=== PATIENT | male | born 1950 | race Caucasian/White ===

== ENCOUNTER → 2016-08-24 | Outpatient (CLI) | payer MEDICARE ==
[~2016-08-24] MED LIST: AMLO2.5T2 PO; ATOR10TA PO; CARV6.25 PO; CONTRAST GIVEN MC PRN; HYDR12.58 PO; IOPAMIDOL 370 76% 100 ML VIAL. IV ONE; LISI-338 PO; WARF2TAB PO
--- NOTE | 2016-08-24 16:29 | KCIC ---
PQRS Compliance Statement: One or more of the following individualized dose reduction techniques were utilized for this examination: 1. Automated exposure control 2. Adjustment of the mA and/or kV according to patient size 3. Use of iterative reconstruction technique CT ABDOMEN PELVIS WO/W Clinical Indication: Microscopic hematuria times one year. History of aortic dissection. Comparison: None. TECHNIQUE: Helical CT imaging of the abdomen and pelvis is performed precontrast. Helical CT acquisition of the kidneys is required during nephrographic phase after 95 cc Omnipaque 300 IV contrast. A delayed phase acquisition of the abdomen and pelvis isn't performed for urogram protocol. Findings: The bladder is not well distended. There is diffuse wall thickening and increased trabeculations. There is small soft tissue density in the base of the bladder that may be protrusion from the prostate, image 194. No filling defect of the renal pelves is seen. The ureters are normal. No hydronephrosis. Small left renal cysts. There is a 1-2 mm nonobstructing calculus in the upper pole of the right kidney. There is no left renal calculus. No ureteral or bladder calculus. Lung bases clear. Coronary artery disease. Cardiac size normal. There are at least 3 tiny hypodensities in the liver, too small to further characterize. There is a 13 mm cyst in segment 4/8. Gallbladder, spleen, pancreas, and adrenal glands are normal. Atherosclerotic distal abdominal aorta and iliac arteries. There is aortic dissection. Abdominal aorta branches appear to arise from the true lumen. Dissection can only be evaluated on the nephrographic phase images which do not include the majority of the iliac arteries. No obvious abnormality of the stomach. Tiny fat-containing periumbilical hernia. No dilated small bowel. Mild distention of the rectosigmoid colon with stool. Moderate proximal sigmoid and descending colon diverticulosis without evidence of diverticulitis. Scattered stool in the ascending and transverse colon. No colon wall thickening. Appendix not seen, no secondary signs of appendicitis. No abdominal adenopathy or free fluid. No pelvic free fluid. Coarse calcifications in the prostate. Bilateral inguinal lymph nodes may be reactive. No compression fracture in the visualized thoracolumbar spine. IMPRESSION: 1. There is diffuse wall thickening of the bladder and increased trabeculations. Small soft tissue density in the base of the bladder may be protrusion from prostate. Urothelial lesion not excluded. 2. Punctate nonobstructing right renal calculus. 3. Small left renal cysts. 4. Abdominal aortic dissection. 5. Moderate distal colon diverticulosis without evidence of diverticulitis. Electronically signed by: Segundo Salmon MD (08/24/2016 4:26 PM)
== END | disposition home or self-care (01) ==
LOC: KCIC CT 13:47
PROVIDERS: ATTEND Urology
DX: R31.29 Other microscopic hematuria (principal); I25.10 Atherosclerotic heart disease of native coronary artery without angina pectoris; N20.0 Calculus of kidney; N28.1 Cyst of kidney, acquired
CPT/HCPCS: 74178

== ENCOUNTER → 2017-02-15 | Outpatient (CLI) | payer MEDICARE ==
[~2017-02-15] MED LIST changes: -CONTRAST GIVEN MC PRN; -IOPAMIDOL 370 76% 100 ML VIAL. IV ONE
--- NOTE | 2017-02-15 16:27 | CARD ---
APPROVED REPORT EXAM: Two-dimensional and M-mode echocardiogram with Doppler and color Doppler. Other Information Quality : GoodHR: 57bpm INDICATION H/O prosthetic aortic valve replacement Surgery/Intervention Status/Post Aortic Valve Replacement: Mechanical Type: MASTERS VALVED GRAFT 2D DIMENSIONS RVDd3.6 (2.9-3.5cm)Left Atrium(2D)4.2 (1.6-4.0cm) IVSd1.5 (0.7-1.1cm)Aortic Root(2D)2.8 (2.0-3.7cm) LVDd4.4 (3.9-5.9cm)LVOT Diameter2.3 (1.8-2.4cm) PWd1.3 (0.7-1.1cm)IVSs1.7 (0.8-1.2cm) LVDs3.0 (2.5-4.0cm)FS (%) 32.6 % PWs1.6 (0.8-1.2cm)SV54.7 ml LVEF(%)61.2 (>50%) M-Mode DIMENSIONS IVSd1.55 (0.7-1.1cm)LVDd5.44 (4.0-5.6cm) PWd1.36 (0.7-1.1cm)IVSs1.66 cm FS (%) 35 %LVDs3.51 (2.0-3.8cm) PWs1.66 cmLVEF(%)64 (>50%) Aortic Valve AoV Peak Gabriel.210.2cm/sAoV VTI54.6cm AO Peak GR.17.7mmHgLVOT Peak Gabriel.106.4cm/s AO Mean GR.11mmHgAVA (VMAX)1.55cm2 Mitral Valve MV E Gjeerqvs60.6cm/sMV E Peak Gr.96mmHg MV DECEL HFMI383blFF A Gfrzjjrh886.1cm/s MV RWI18xaL/A Ratio0.8 MVA (PHT)3.08cm2 TDI E/Lateral E'7.7E/Medial E'11.8 Pulmonary Valve PV Peak Vhyfqtic189.9cm/sPV Peak Grad.5mmHg Tricuspid Valve TR P. Imhcouco142ja/sRAP MHMEHFFD0omXz TR Peak Gr.7mmHg LEFT VENTRICLE The left ventricle is normal size. There is mild concentric left ventricular hypertrophy. The left ve ntricular systolic function is low normal. EF 50-55% There is normal LV segmental wall motion. Transm itral Doppler flow pattern is Grade I-abnormal relaxation pattern. RIGHT VENTRICLE The right ventricle is mildly to moderately dilated. The right ventricle is mildly hypertrophied. The right ventricular systolic function is normal. ATRIA The left atrium size is normal. The right atrium size is normal. The interatrial septum is intact wit h no evidence for an atrial septal defect or patent foramen ovale as noted on 2-D or Doppler imaging. AORTIC VALVE Doppler and Color Flow revealed trace to mild aortic regurgitation. There is no significant aortic va lvular stenosis. There is no aortic valvular vegetation. Aortic Valce Replacement- Model #-[id number] 00, Tissue Annulus Diameter - 25mm, Graft Inner Diameter- 28mm, Valve Orifice Inner Diameter - 20.4 mm, Geometric Orifice Area - 3.09(cm2) MITRAL VALVE The mitral valve is thickened but opens well. There is no evidence of mitral valve prolapse. There is no mitral valve stenosis. Doppler and Color-flow revealed mild mitral regurgitation. TRICUSPID VALVE The tricuspid valve leaflets are thickened , but open well. Doppler and Color Flow revealed trace to mild tricuspid regurgitation. There is no tricuspid valve stenosis. PULMONIC VALVE Doppler and Color Flow revealed moderate pulmonic valvular regurgitation. There is no pulmonic valvul ar stenosis. GREAT VESSELS The aortic root is normal in size. The ascending aorta is normal in size. The IVC is normal in size a nd collapses >50% with inspiration. PERICARDIAL EFFUSION There is no pleural effusion. There is no evidence of significant pericardial effusion. Critical Notification Critical Value: No <Conclusion> The left ventricular systolic function is low normal. EF 50-55% There is normal LV segmental wall motion. The right ventricle is mildly to moderately dilated. Aortic Valce Replacement- Model #-[id number] 00, Doppler and Color Flow revealed trace to mild aorti c regurgitation.
== END | disposition home or self-care (01) ==
LOC: ECHO 12:41
PROVIDERS: ATTEND Internal Medicine Cardiovascular Disease
DX: I34.0 Nonrheumatic mitral (valve) insufficiency (principal); I35.1 Nonrheumatic aortic (valve) insufficiency; I51.7 Cardiomegaly; Z95.2 Presence of prosthetic heart valve
CPT/HCPCS: 93306

== ENCOUNTER 2017-04-22 13:07 | Inpatient (IN) | payer MEDICARE ==
[2017-04-22 13:45] LABS: ADD MAN DIFF? NO
[2017-04-22 13:51] LABS: BASO % 0 % (0-3); EOS # 0.3 x10^3/uL (0.0-0.7); EOS % 2 % (0-3); HEMATOCRIT 38.8 % (39.0-53.0); HEMOGLOBIN 13.2 g/dL (13.0-17.5); LYMPH # 1.6 x10^3/uL (1.0-4.8); LYMPH % 14 % (24-48); MEAN CORPUSCULAR HEMOGLOBIN 30 pg (25-35); MEAN CORPUSCULAR HGB CONC 34 g/dL (31-37); MEAN CORPUSCULAR VOLUME 87 fL (79-100); MONO # 0.8 x10^3/uL (0.0-1.1); MONO % 7 % (0-9); NEUT # 8.5 x10^3uL (1.8-7.7); NEUT % 76 % (31-73); PLATELET COUNT 338 x10^3/uL (140-400); RED BLOOD COUNT 4.44 x10^6/uL (4.30-5.70); RED CELL DISTRIBUTION WIDTH 13.9 % (11.5-14.5); WHITE BLOOD COUNT 11.2 x10^3/uL (4.0-11.0)
[2017-04-22 14:04] LABS: ANION GAP 9 (6-14); BLOOD UREA NITROGEN 27 mg/dL (8-26); CALCIUM 9.5 mg/dL (8.5-10.1); CARBON DIOXIDE 33 mmol/L (21-32); CHLORIDE 98 mmol/L (98-107); CREATININE 1.3 mg/dL (0.7-1.3); GFR 55.6; GLUCOSE 123 mg/dL (70-99); POTASSIUM 3.1 mmol/L (3.5-5.1); SODIUM 140 mmol/L (136-145)
[2017-04-22 14:07] LABS: ALBUMIN 3.8 g/dL (3.4-5.0); ALK PHOS 74 U/L (46-116); ALT (SGPT) 17 U/L (16-63); AST (SGOT) 28 U/L (15-37); DIRECT BILIRUBIN 0.2 mg/dL (0.0-0.2); LIPASE 122 U/L (73-393); TOTAL BILIRUBIN 1.2 mg/dL (0.2-1.0)
[2017-04-22 14:15] LABS: TROPONINI < 0.017 ng/mL (0.000-0.055)
[2017-04-22] MEDS: IV NORMAL SALINE 500ML BAG 500 ML IV ×2 (14:29→14:52)
[2017-04-22] MEDS: hydrALAZINE 20 MG/ML VIAL. IVP (14:30)
[2017-04-22 14:42] LABS: BILIRUBIN,URINE NEGATIVE (NEG); CLARITY,URINE CLOUDY; COLOR,URINE YELLOW; GLUCOSE,URINE NEGATIVE (NEG); NITRITE,URINE NEGATIVE (NEG); PH,URINE 6.5; PROTEIN,URINE NEGATIVE (NEG-TRACE); UROBILINOGEN,URINE 0.2 mg/dL (0.2 mg/dL)
[2017-04-22] MEDS ORDERED: MORPHINE SULFATE 2 MG/ML DISP.SYRIN. IV ×2 (14:45→20:00)
[2017-04-22] MEDS ORDERED: ONDANSETRON PF 4 MG/2 ML VIAL. IV ×2 (14:45→20:00)
[2017-04-22 14:49] LABS: BACTERIA,URINE 0 /HPF (0-FEW); RBC,URINE 0 /HPF (0-2); WBC,URINE >40 /HPF (0-4)
[2017-04-22] MEDS ORDERED: ESMOLOL 2500MG/250ML PREMIX 250 ML IV (15:00)
[2017-04-22] MEDS ORDERED: CCPD PATIENT. MC (15:15)
[2017-04-22] MEDS: IOHEXOL 300 MG/ML 100ML VIAL. IV (15:19)
[2017-04-22] MEDS: IV NORMAL SALINE 1000ML BAG 1,000 ML IV ×2 (15:42→21:53)
[2017-04-22] MEDS: METOPROLOL TART IMMED RELEASE 25 MG TABLET. PO (15:43)
[2017-04-22 17:04] LABS: INR 2.3 (0.8-1.1); PROTHROMBIN TIME PATIENT 23.5 SEC (11.7-14.0)
[2017-04-22 17:05] LABS: PARTIAL THROMBOPLASTIN TIME 42 SEC (24-38)
[2017-04-22] MEDS ORDERED: DOCUSATE SODIUM 100 MG CAPSULE. PO (20:00)
[2017-04-22] MEDS ORDERED: traMADol 50 MG TABLET PO (20:00)
[2017-04-22] MEDS ORDERED: hydrALAZINE 20 MG/ML VIAL. IVP (20:00)
[2017-04-22] MEDS ORDERED: ACETAMINOPHEN 325 MG TABLET. PO (20:00)
[2017-04-22] MEDS: SIMVASTATIN 10 MG TABLET PO ×2 (21:44→21:52)
[2017-04-22] MEDS: WARFARIN 5 MG TABLET. PO (21:45)
[2017-04-22] MEDS: OMEGA-3 FATTY ACIDS/FISH OIL 1,000 MG CAPSULE. PO (22:06)
[2017-04-22] MEDS: FAMOTIDINE 20 MG TABLET. PO (22:06)
[2017-04-22] MEDS: PSYLLIUM HUSK (SUGAR FREE) 1 PKT PACKET PO (22:06)
[2017-04-22] MEDS ORDERED: PSYLLIUM HUSK (SUGAR FREE) 1 PKT PACKET PO (22:30)
[2017-04-23 04:43] LABS: ADD MAN DIFF? NO
[2017-04-23 04:59] LABS: BASO # 0.1 x10^3/uL (0.0-0.2); BASO % 1 % (0-3); EOS # 0.2 x10^3/uL (0.0-0.7); EOS % 2 % (0-3); HEMATOCRIT 35.9 % (39.0-53.0); HEMOGLOBIN 12.3 g/dL (13.0-17.5); LYMPH # 1.6 x10^3/uL (1.0-4.8); LYMPH % 14 % (24-48); MEAN CORPUSCULAR HEMOGLOBIN 30 pg (25-35); MEAN CORPUSCULAR HGB CONC 34 g/dL (31-37); MEAN CORPUSCULAR VOLUME 87 fL (79-100); MONO # 0.9 x10^3/uL (0.0-1.1); MONO % 8 % (0-9); NEUT # 8.7 x10^3uL (1.8-7.7); NEUT % 76 % (31-73); PLATELET COUNT 330 x10^3/uL (140-400); RED BLOOD COUNT 4.12 x10^6/uL (4.30-5.70); WHITE BLOOD COUNT 11.5 x10^3/uL (4.0-11.0)
[2017-04-23 05:10] LABS: INR 2.3 (0.8-1.1); PROTHROMBIN TIME PATIENT 23.8 SEC (11.7-14.0)
[2017-04-23 05:49] LABS: ANION GAP 9 (6-14); BLOOD UREA NITROGEN 20 mg/dL (8-26); CALCIUM 8.9 mg/dL (8.5-10.1); CARBON DIOXIDE 30 mmol/L (21-32); CHLORIDE 105 mmol/L (98-107); CREATININE 1.1 mg/dL (0.7-1.3); GFR 67.4; GLUCOSE 94 mg/dL (70-99); POTASSIUM 3.1 mmol/L (3.5-5.1); SODIUM 144 mmol/L (136-145)
[2017-04-23] MEDS: FAMOTIDINE 20 MG TABLET. PO (08:36)
[2017-04-23] MEDS: CHOLECALCIFEROL (VITAMIN D3) 1,000 UNIT TABLET PO (08:36)
[2017-04-23] MEDS: OMEGA-3 FATTY ACIDS/FISH OIL 1,000 MG CAPSULE. PO (08:36)
[2017-04-23] MEDS ORDERED: WARFARIN 5 MG TABLET. PO (09:00)
[2017-04-23] MEDS: POTASSIUM CHLORIDE 20 MEQ TABLET.ER. PO (11:20)
[2017-04-23] MEDS ORDERED: WARFARIN 7.5 MG TABLET. PO (16:00)
== END 2017-04-23 11:30 | disposition home or self-care (01) | DRG 69 ==
LOC: ER 13:07 → 2 NORTH 16:53
DX: G45.9 Transient cerebral ischemic attack, unspecified (principal); E78.5 Hyperlipidemia, unspecified; N39.0 Urinary tract infection, site not specified; I16.0 Hypertensive urgency; H81.399 Other peripheral vertigo, unspecified ear; H91.90 Unspecified hearing loss, unspecified ear; E87.6 Hypokalemia; H93.19 Tinnitus, unspecified ear; I10 Essential (primary) hypertension; J44.9 Chronic obstructive pulmonary disease, unspecified; R27.0 Ataxia, unspecified; Z82.49 Family history of ischemic heart disease and other diseases of the circulatory system; Z85.51 Personal history of malignant neoplasm of bladder; Z87.891 Personal history of nicotine dependence; Z95.2 Presence of prosthetic heart valve; Z88.0 Allergy status to penicillin; Z88.8 Allergy status to other drugs, medicaments and biological substances
CPT/HCPCS: 36415; 70450; 70496; 70498; 80048; 80076; 81001; 83690; 84484; 85025; 85610; 85730; 87086; 93005; 96361; 96374; 99285; 99285-25; J0360; J7030; J7040; Q9967

== ENCOUNTER → 2017-07-19 | Outpatient (CLI) | payer MEDICARE ==
[~2017-07-19] MED LIST changes: -AMLO2.5T2 PO; -ATOR10TA PO; -CARV6.25 PO; +CONTRAST GIVEN MC; -HYDR12.58 PO; -LISI-338 PO; -WARF2TAB PO
[2017-07-19] MEDS: IOHEXOL 300 MG/ML 100ML VIAL. IV (08:55)
== END | disposition home or self-care (01) ==
LOC: CT 14:59
DX: I71.01 Dissection of thoracic aorta (principal); J43.2 Centrilobular emphysema; Z86.79 Personal history of other diseases of the circulatory system
CPT/HCPCS: 71260; 74160; Q9967

== ENCOUNTER → 2018-02-28 | Outpatient (CLI) | payer MEDICARE ==
[2017-04-23 11:17] VITALS: BP 157/73
[~2018-02-28] MED LIST changes: +AMLO10TA4 PO; +AMLO2.5T2 PO; +ATOR10TA PO; +CARV6.25 PO; +CHOL10003 PO; -CONTRAST GIVEN MC; +FAMO20TA5 PO; +FISH1CAP PO; +HYDR-2145 PO; +HYDR12.58 PO; +LISI-334 PO; +LISI-338 PO; +PSYL822P6 PO; +SIMV10TA3 PO; +WARF-78 PO; +WARF2TAB PO; +WARF7.5T48 PO
--- NOTE | 2018-02-28 11:28 | CARD ---
MR#: [id number] Date of Study: 02/28/2018 Ordering Physician: KOBE LOPEZ, Referring Physician: KOBE LOPEZ Tech: Jess Martin RDCS APPROVED REPORT EXAM: Two-dimensional and M-mode echocardiogram with Doppler and color Doppler. Other Information Quality : Good INDICATION Surgery/Intervention Status/Post Aortic Valve Replacement: Mechanical Type: St. Brandt #25mm Date: 11/27/2008 2D DIMENSIONS RVDd3.6 (2.9-3.5cm)Left Atrium(2D)4.0 (1.6-4.0cm) IVSd1.1 (0.7-1.1cm)Aortic Root(2D)2.5 (2.0-3.7cm) LVDd5.5 (3.9-5.9cm)LVOT Diameter2.2 (1.8-2.4cm) PWd1.0 (0.7-1.1cm)LVDs3.3 (2.5-4.0cm) FS (%) 30.0 %SV99.1 ml LVEF(%)60.0 (>50%) Aortic Valve AoV Peak Gabriel.226.5cm/sAoV VTI53.5cm AO Peak GR.20.5mmHgLVOT Peak Gabriel.123.7cm/s LVOT VTI 29.44cmAO Mean GR.12mmHg TAQUERIA (VMAX)2.69da4XBB (VTI)2.07cm2 Mitral Valve MV E Qzwjfpxk30.2cm/sMV DECEL IMOR428yc MV A Tlevdefa21.4cm/sMV LDZ78ny E/A Ratio0.9MVA (PHT)4.69cm2 TDI E/Lateral E'9.8E/Medial E'12.3 Tricuspid Valve TR P. Qzfdhljt311ww/sRAP ZOKXJBCY9wrBn TR Peak Gr.41faJwSSJL90bnUy Pulmonary Vein S1 Reyyrocb36.6cm/sD2 Fzwgnmlx22.5cm/s LEFT VENTRICLE The left ventricle is normal size. There is normal left ventricular wall thickness. The left ventricu lar systolic function is normal and the ejection fraction is within normal range. Left ventricular ej ection fraction of 50-55%. There is normal LV segmental wall motion. Transmitral Doppler flow pattern is Grade I-abnormal relaxation pattern. RIGHT VENTRICLE The right ventricle is normal size. The right ventricular systolic function is normal. ATRIA The left atrium is mildly dilated. The right atrium size is normal. The interatrial septum is intact with no evidence for an atrial septal defect or patent foramen ovale as noted on 2-D or Doppler imagi ng. AORTIC VALVE The aortic valve is not well visualized. Doppler and Color Flow revealed trace to mild aortic regurgi tation. Calculated aortic valve area is 2.0 cm2 with maximum pressure gradient of 21 mmHg and mean pr essure gradient of 12 mmHg. There is no significant aortic valvular stenosis. MITRAL VALVE The mitral valve is calcified but opens well. The anterior mitral valve leaflet is redundant. There i s no mitral valve stenosis. Doppler and Color-flow revealed mild eccentric mitral regurgitation. TRICUSPID VALVE The tricuspid valve is normal in structure and function. Doppler and Color Flow revealed trace tricus pid regurgitation. The PA pressure was estimated at 16 mmHg. There is no tricuspid valve stenosis. PULMONIC VALVE The pulmonic valve is not well visualized. Doppler and Color Flow revealed trace to mild pulmonic carroll vular regurgitation. There is no pulmonic valvular stenosis. GREAT VESSELS The aortic root is normal in size. The ascending aorta is normal in size. The IVC is normal in size a nd collapses >50% with inspiration. PERICARDIAL EFFUSION There is no evidence of significant pericardial effusion. Critical Notification Critical Value: No <Conclusion> The left ventricle is normal size. The left ventricular systolic function is normal and the ejection fraction is within normal range. Left ventricular ejection fraction of 50-55%. Calculated aortic valve area is 2.0 cm2 with maximum pressure gradient of 21 mmHg and mean pressure g radient of 12 mmHg. There is no significant aortic valvular stenosis. Doppler and Color Flow revealed trace to mild aortic regurgitation. Doppler and Color-flow revealed mild eccentric mitral regurgitation. Doppler and Color Flow revealed trace tricuspid regurgitation. The PA pressure was estimated at 16 mmHg. Signed by : Selvin Aranda MD Electronically Approved : 02/28/2018 11:27:22
== END | disposition home or self-care (01) ==
LOC: ECHO 08:41
PROVIDERS: ATTEND Internal Medicine Cardiovascular Disease
DX: Z48.812 Encounter for surgical aftercare following surgery on the circulatory system (principal); I08.0 Rheumatic disorders of both mitral and aortic valves; Z95.2 Presence of prosthetic heart valve; Z87.891 Personal history of nicotine dependence
CPT/HCPCS: 93306

== ENCOUNTER → 2018-07-19 | Day surgery (SDC) | payer MEDICARE ==
[~2018-07-19] MED LIST changes: +HYDROmorphone 2 MG/ML VIAL IV PRN; +IV RINGERS,LACTATED 1000ML 1,000 ML IV SCH; +LIDOCAINE 1% PF 2 ML VIAL. ID PRN; +LIDOCAINE 2% PF 5 ML VIAL. ONE; +MORPHINE SULFATE 2 MG/ML VIAL. IV PRN; +ONDANSETRON PF 4 MG/2 ML VIAL. IV PRN; +PROCHLORPERAZINE 10 MG/2 ML VIAL. IV PRN; +PROPOFOL 40 ML IV ONE; +fentaNYL PF VIAL 100 MCG/2 ML VIAL IV PRN
[2018-07-19 10:05] VITALS: BP 111/66
--- NOTE | 2018-07-20 00:58 | CONS ---
DATE OF CONSULTATION: REFERRING PHYSICIAN: Dr. Jesse Vo. REASON FOR CONSULTATION: Rectal bleeding. HISTORY OF PRESENT ILLNESS: This is a 67-year-old male with past medical history significant for hypertension, hyperlipidemia, status post aortic valve replacement and aortic dissection, on anticoagulation ____ with an episode of bleeding associated with constipation. There is a family history of colon polyp with the sister with recent events. He does request a colonoscopy. PAST MEDICAL HISTORY: Hyperlipidemia, hypertension, status post aortic valve replacement, diverticulosis, COPD. ALLERGIES: PENICILLIN AND CIPRO. MEDICATIONS: Include amlodipine, carvedilol, vitamin D, famotidine, fish oil, hydrochlorothiazide, lisinopril, simvastatin, and warfarin. FAMILY HISTORY: Significant for colon polyps in a sister. Hypertension with both parents, MIs with both parents. SOCIAL HISTORY: Former smoker, social drinker. PAST SURGICAL HISTORY: AAA repair, appendectomy, tonsillectomy, aortic valve replacement, craniotomy due to subdural hematoma. REVIEW OF SYSTEMS: Per records. PHYSICAL EXAMINATION: GENERAL: Reveals a well-nourished, well-developed male, who is alert, cooperative, in no acute distress. VITAL SIGNS: Temperature 97.5, pulse 60, respirations 18. HEENT: Normocephalic and atraumatic head. Pupils and extraocular muscles are not tested. Sclerae anicteric. NECK: Supple. LUNGS: Clear. CARDIOVASCULAR: Reveals an S1, S2 without S3, S4 or appreciable murmur. ABDOMEN: Soft abdomen, normal bowel sounds, without appreciable hepatosplenomegaly. EXTREMITIES: Reveals no cyanosis, clubbing, edema. IMPRESSION: Rectal bleeding and requiring anticoagulation with aortic valve replacement. We will recommend colonoscopy and endoscopic polypectomies will be ____ by endoclipping to reduce the risk of bleeding as the Coumadin has only been held for the previous night and this will be resumed later today to reduce the risk of thromboembolism. I would like to thank Dr. Vo for allowing us to consult and participate in this patient's care. LIZZY PASTOR MD DR: [facility] JOB#: [id number] / [id number]
--- NOTE | 2018-07-22 16:06 | PATHOLOGY ---
[facility] Accession Number: [id number] . 01 Material submitted: . colon - SIMGOID POLYP. Modifiers: sigmoid . 01 Clinical history: . Abdominal pain . 02 Diagnosis: Colon biopsy, sigmoid polyp: - Hyperplastic polyp. ([facility] 07/22/2018) P/07/22/2018 . 02 Comment: There are no adenomatous changes or evidence of malignancy. ([facility] 07/22/2018) . 02 Electronically signed: . Steven Mcdermott MD, Pathologist NPI- [id number] . 01 Gross description: . Received in formalin labeled "Gordon, Dez, sigmoid polyp," is a single segment of mejia soft tissue measuring 0.4 cm in maximum dimension. The specimen is entirely submitted in cassette A1. ([facility]; 07/19/2018) TOB/TOB . 02 Pathologist provided ICD-10: K63.5 . 02 CPT . 139704 Specimen Comment: A courtesy copy of this report has been sent to Specimen Comment: [phone], . Specimen Comment: Report sent to / DR HOOPER Performed at: 01 [facility] [address] [facility] [address] [facility] [address], [place] [id number] MD Noah Cintron MD Phone: [phone] Performed at: 02 [facility] [address] [place], [place] [id number] MD Steven Mcdermott MD Phone: [phone]
== END | disposition home or self-care (01) ==
LOC: ENDOS 08:05
PROVIDERS: ATTEND Internal Medicine Gastroenterology
DX: K63.5 Polyp of colon (principal); K57.30 Diverticulosis of large intestine without perforation or abscess without bleeding; K64.0 First degree hemorrhoids; I10 Essential (primary) hypertension; E78.5 Hyperlipidemia, unspecified; Z88.1 Allergy status to other antibiotic agents; Z88.0 Allergy status to penicillin; Z79.01 Long term (current) use of anticoagulants; J44.9 Chronic obstructive pulmonary disease, unspecified; Z87.19 Personal history of other diseases of the digestive system; Z79.899 Other long term (current) drug therapy; Z82.49 Family history of ischemic heart disease and other diseases of the circulatory system; Z87.891 Personal history of nicotine dependence; Z72.89 Other problems related to lifestyle; Z90.49 Acquired absence of other specified parts of digestive tract; Z98.890 Other specified postprocedural states; Z95.4 Presence of other heart-valve replacement
CPT/HCPCS: 45385; 88305; J2001; J2704; 45380

== ENCOUNTER → 2018-09-24 | Outpatient (CLI) | payer MEDICARE ==
[2018-07-19 10:05] VITALS: BP 111/66
[~2018-09-24] MED LIST changes: -HYDROmorphone 2 MG/ML VIAL IV PRN; -IV RINGERS,LACTATED 1000ML 1,000 ML IV SCH; -LIDOCAINE 1% PF 2 ML VIAL. ID PRN; -LIDOCAINE 2% PF 5 ML VIAL. ONE; -MORPHINE SULFATE 2 MG/ML VIAL. IV PRN; -ONDANSETRON PF 4 MG/2 ML VIAL. IV PRN; -PROCHLORPERAZINE 10 MG/2 ML VIAL. IV PRN; -PROPOFOL 40 ML IV ONE; -fentaNYL PF VIAL 100 MCG/2 ML VIAL IV PRN
--- NOTE | 2018-09-24 12:06 | RAD ---
MR#: [id number] Date of Study: 09/24/2018 Ordering Physician: KOBE LOPEZ Referring Physician: EMORY CAMARGO Tech: GLORIA Smith APPROVED REPORT Test Type: Exercise Stress Nurse/Tech: Janie Zafar R.N. Test Indications: aortic discection Cardiac History: mechanical valve, htn, copc Medications: See Electronic Medical Record Medical History: See Electronic Medical Record Resting ECG: SB w/ pacs Resting Heart Rate: 52 bpm Resting Blood Pressure: 120/47mmHg Pretest Chest Pain: No chest pain Nurse/Tech Notes S1S2, click from mechanical valve, lungs CTA Consent: The procedure was explained to the patient in lay terms. Informed consent was witnessed. Shailesh eout was entered into [employer]. History and Stress Test performed by GLORIA Smith Stress Symptoms severe SOB POST EXERCISE Reason for Termination: Reached target heart rate Target HR: Yes Max HR: 138 bpm 106% of Maximum Predicted HR: 130 bpm Exercise duration: 5:49 min:sec, 2 Stage Exercise capacity: 7METs Max Blood Pressure: 190/66mmHg Blood Pressure response to exercise: Normal blood pressure response during stress. Heart Rate response to exercise: wnl Chest Pain: No. Arrhythmia: Yes. started having multiple pvcs and pacs- became very irregular ST Change: No. INTERPRETATION Stress EKG Conclusion: Abnormal EKG response with frequent PVC's in recovery. Imaging Protocol IMAGE PROTOCOL: Rest Tc-99m/stress Tc-99m 1 day Rest: Stress: Viability: Radiopharm.Tc99m TdfhdxnwxYh26y Sestamibi Qrhy69mOq 33mCi Duration 13.5min. 13.5min. Img Date 09/24/2018 09/24/2018 Inj-Img Fiwk51vun. 60min. Post-Injection Exercise: 1 minute Rest Admin Site:IV - Right AntecubitalAdministrator:GLORIA Smith Stress Admin Site: IV - Right AntecubitalAdministrator: GLORIA Smith STRESS DATA End Diast. Vol.106.0mlLVEDV index BSA51.0ml End Syst. Vol.37.0mlLVESV index BSA18.0ml Myocardial Lsan137.0gEject. Duscohkf67.0% Stress Scores Regional WT0.00Summed WT1.00 Regional WM0.00Summed WM8.00 LV Perfusion Normal perfusion at stress. Diaphragmatic attenuation at rest precludes accurate assessment. Wall Motion Normal LV function. LV Perf. Quant 17 Seg. SSS2.00 17 Seg. SRS12.00 17 Seg. SDS0.00 Stress Defect Extent (% LAD)0.00Rest Defect Extent (% LAD)1.30Rev. Defect Extent (% LAD)0.00 Stress Defect Extent (% LCX) 0.00Rest Defect Extent (% LCX)42.50Rev. Defect Extent (% LCX)0.00 Stress Defect Extent (% RCA)0.00Rest Defect Extent (% RCA)12.20Rev. Defect Extent (% RCA)0.00 Stress Defect Extent (% ERNESTO)0.00Rest Defect Extent (% ERNESTO)18.50Rev. Defect Extent (% ERNESTO)0.00 Other Information Quality:Good Risk Assessment: Low Risk Conclusion 1. Mildly abnormal EKG with frequent PVC's in recovery. Patient had severe shortness of breath with e xertion. 2. Normal perfusion at stress. Rest images have significant artifact. 3. Normal EF at > 65% 4. Moderate risk study due to abnormal EKG and symptoms Signed by : Gallo Templeton, Electronically Approved : 09/24/2018 12:06:09
== END | disposition home or self-care (01) ==
LOC: NM 08:16
PROVIDERS: ATTEND Internal Medicine Cardiovascular Disease
DX: I49.3 Ventricular premature depolarization (principal); R94.31 Abnormal electrocardiogram [ECG] [EKG]; R06.02 Shortness of breath; I10 Essential (primary) hypertension; J44.9 Chronic obstructive pulmonary disease, unspecified; Z79.01 Long term (current) use of anticoagulants; Z87.891 Personal history of nicotine dependence
CPT/HCPCS: 78452; 93017; A9500; 96376

== ENCOUNTER → 2018-11-28 | Outpatient (CLI) | payer MEDICARE, BC ==
[2018-07-19 10:05] VITALS: BP 111/66
--- NOTE | 2018-11-28 17:21 | CARD ---
MR#: [id number] Date of Study: 11/28/2018 Ordering Physician: KOBE LOPEZ, Referring Physician: KOBE LOPEZ, Tech: Hailee Dumontkerry APPROVED REPORT EXAM: Two-dimensional and M-mode echocardiogram with Doppler and color Doppler. Other Information Quality : AverageHR: 45bpm INDICATION COPD Aortic Valve Disease Surgery/Intervention Status/Post Aortic Valve Replacement: Mechanical Type: St. Brandt #25 Date: 11/27/2008 RISK FACTORS Hypertension Hyperlipidemia Previous smoker 2D DIMENSIONS RVDd3.9 (2.9-3.5cm)Left Atrium(2D)3.5 (1.6-4.0cm) IVSd1.2 (0.7-1.1cm)Aortic Root(2D)2.7 (2.0-3.7cm) LVDd5.2 (3.9-5.9cm)LVOT Diameter2.0 (1.8-2.4cm) PWd1.0 (0.7-1.1cm)LVDs3.2 (2.5-4.0cm) FS (%) 39.0 %SV90.1 ml LVEF(%)69.0 (>50%) Aortic Valve AoV Peak Gabriel.243.2cm/sAoV VTI56.1cm AO Peak GR.23.7mmHgLVOT Peak Gabriel.70.7cm/s LVOT VTI 17.54cmAO Mean GR.13mmHg TAQUERIA (VMAX)0.52po9EPB (VTI)1.03cm2 AI P 1/2 Pafk850vr Mitral Valve MV E Uzicmism37.4cm/sMV DECEL GUCW071gb MV A Gsgblybb47.8cm/sMV JWV50mi E/A Ratio1.3MVA (PHT)4.18cm2 TDI E/Lateral E'9.7E/Medial E'13.3 Pulmonary Valve PV Peak Wokdyorb987.4cm/sPV Peak Grad.5mmHg Tricuspid Valve TR P. Tpbobbkm592tm/sRAP ZEIXSEBW4hsDu TR Peak Gr.00yhXvWILE66jsAk Pulmonary Vein S1 Qthrnefz94.1cm/sD2 Dxufqpqw42.5cm/s PVa jebucavk636pkgw LEFT VENTRICLE The left ventricle is normal size. There is mild concentric left ventricular hypertrophy. The left ve ntricular systolic function is normal. The Ejection Fraction is 50-55%. There is normal LV segmental wall motion. Transmitral Doppler flow pattern is Grade II-pseudonormal filling dynamics. RIGHT VENTRICLE The right ventricle is normal size. There is normal right ventricular wall thickness. The right ventr icular systolic function is normal. ATRIA The left atrium is borderline dilated. The right atrium is mildly dilated. The interatrial septum is intact with no evidence for an atrial septal defect or patent foramen ovale as noted on 2-D or Dopple r imaging. AORTIC VALVE Doppler and Color Flow revealed trace to mild aortic regurgitation. Calculated aortic valve area is 1 .03 cm2 with maximum pressure gradient of 24 mmHg and mean pressure gradient of 13 mmHg. There is a m echanical aortic valve prosthesis. MITRAL VALVE The anterior mitral valve leaflet appears redundant. There is no mitral valve stenosis. Doppler and C olor-flow revealed trace mitral regurgitation. TRICUSPID VALVE The tricuspid valve is normal in structure and function. Doppler and Color Flow revealed trace tricus pid regurgitation with an estimated PAP of 26 mmHg. There is no tricuspid valve stenosis. PULMONIC VALVE The pulmonic valve is not well visualized. Doppler and Color Flow revealed trace to mild pulmonic carroll vular regurgitation. GREAT VESSELS The aortic root is normal in size. The ascending aorta is normal in size. The IVC is normal in size a nd collapses >50% with inspiration. PERICARDIAL EFFUSION There is no evidence of significant pericardial effusion. Critical Notification Critical Value: No <Conclusion> The left ventricular systolic function is normal. The Ejection Fraction is 50-55%. There is normal LV segmental wall motion. Mechanical aortic valve prosthesis appears well seated and functioning well. Mean pressure gradient 1 3 mmHg. Trace to mild aortic regurgitation. Trace mitral regurgitation. Trace tricuspid regurgitation with an estimated PAP of 26 mmHg. There is no evidence of significant pericardial effusion. Signed by : Kobe Lopez, Electronically Approved : 11/28/2018 17:20:27
== END | disposition home or self-care (01) ==
LOC: ECHO 09:54
PROVIDERS: ATTEND Internal Medicine Cardiovascular Disease
DX: I08.8 Other rheumatic multiple valve diseases (principal); I10 Essential (primary) hypertension; J44.9 Chronic obstructive pulmonary disease, unspecified; E78.5 Hyperlipidemia, unspecified; Z87.891 Personal history of nicotine dependence; Z95.2 Presence of prosthetic heart valve
CPT/HCPCS: 93306